=== PATIENT | male | born 1980 | race Caucasian/White ===

== ENCOUNTER 2022-12-30 18:13 | Emergency (ER) | payer BC, SELFPAY ==
[2022-12-30 18:20] VITALS: BP 132/85; PULSE 97; RESP 16; TEMP 36.8; O2SAT 100
--- NOTE | 2022-12-30 18:25 | ED.EAR ---
HPI - Ear Problem General Chief complaint: Ear Stated complaint: Left Ear Pain History of Present Illness HPI Narrative: Patient presents with left ear pain. Patient states he wears ear buds at work and thinks he may have scratched his left inner ear. No drainage from the ear no decrease in hearing. Related Data Home Medications Medication Instructions Recorded Confirmed albuterol sulfate 90 mcg/actuation 2 puff inhalation QID PRN 12/30/22 12/30/22 aerosol inhaler Shortness Of Breath Or Wheezing Allergies Allergy/AdvReac Type Severity Reaction Status Date / Time cefaclor [From [facility]] Allergy Unknown Unknown Verified 12/30/22 18:25 Review of Systems Review of Systems: CONSTITUTIONAL: Denies fever, chills, or sweats. EYES: Denies visual changes, redness, or discharge. ENT: Denies rhinorrhea, congestion, sore throat, or otalgia. CARDIOVASCULAR: Denies chest pain, palpitations, or edema. RESPIRATORY: Denies cough or dyspnea. GASTROINTESTINAL: Denies abdominal pain, nausea, vomiting, or diarrhea. GENITOURINARY: Denies dysuria or hematuria. SKIN: Denies rash or itching. MUSCULOSKELETAL: Denies back pain, joint pain, or myalgia. NEUROLOGIC: Denies headache, numbness, or weakness. PSYCHIATRIC: Denies anxiety or depression. PMFSH Comments At time of signature, agree with nursing past medical, surgical, social and family history. There is no relevant family history pertinent to the presenting complaint Exam Narrative: GENERAL: Well-appearing, well-nourished, and in no acute distress. HEAD: Normocephalic, atraumatic. EYES: PERRLA and EOMI. ENT: Nares clear, no rhinorrhea or epistaxis. Mucous membranes moist. NECK: Supple. CHEST: Clear to auscultation. No respiratory distress. HEART: Regular rate and rhythm. No murmur heard. Normal peripheral pulses. ABDOMEN: Soft, nontender, nondistended, normal active bowel sounds. EXTREMITIES: Normal range of motion. No edema. SKIN: Warm, dry, no rash. NEURO: No focal deficits. Alert and oriented x3. Mikael Coma Scale Eye Opening: Spontaneous 4 Mikael Coma Scale Motor: Obeys Commands 6 [place] Coma Scale Verbal: Oriented 5 Mikael Coma Scale Total 15 HENMT: Ears: Abnormal EAC present erythema on the left, edema and EAC tenderness Course Course Level of Care: Express Care Visit Vital Signs Vital signs: Vital Signs Temperature 36.8 C 12/30/22 18:20 Pulse Rate 97 12/30/22 18:20 Respiratory Rate 16 12/30/22 18:20 Blood Pressure 132/85 12/30/22 18:20 Pulse Oximetry 100 12/30/22 18:20 Oxygen Delivery Room Air 12/30/22 18:20 Temperature 36.8 C 12/30/22 18:20 Pulse Rate 97 12/30/22 18:20 Respiratory Rate 16 12/30/22 18:20 Blood Pressure 132/85 12/30/22 18:20 Pulse Oximetry 100 12/30/22 18:20 Oxygen Delivery Room Air 12/30/22 18:20 Please JOSE schedule a followup visit with your personal physician for further evaluation and treatment. Including recheck and discussion of your blood pressure. If your symptoms persist, change or worsen significantly before you can contact your personal physician then please, without delay, go to the emergency department for further evaluation Medical Decision Making Vital Signs Vital Signs: Vital Signs Temperature 36.8 C 12/30/22 18:20 Pulse Rate 97 12/30/22 18:20 Respiratory Rate 16 12/30/22 18:20 Blood Pressure 132/85 12/30/22 18:20 Pulse Oximetry 100 12/30/22 18:20 Oxygen Delivery Room Air 12/30/22 18:20 Temperature 36.8 C 12/30/22 18:20 Pulse Rate 97 12/30/22 18:20 Respiratory Rate 16 12/30/22 18:20 Blood Pressure 132/85 12/30/22 18:20 Pulse Oximetry 100 12/30/22 18:20 Oxygen Delivery Room Air 12/30/22 18:20 Discharge Plan Discharge Clinical Impression: Otitis externa Patient Disposition: Home, Self-Care Condition: Stable Instructions: Antibiotic Form, Earache (ED) Additional Instructions: Use ear drops as pr
[2022-12-30 18:26] VITALS: BP 132/85; PULSE 97; RESP 16; TEMP 36.8; O2SAT 100
== END 2022-12-30 18:29 | disposition home or self-care (01) ==
PROVIDERS: Emergency Provider Nurse Practitioner Family; PCP Family Medicine
DX: H60.90 Unspecified otitis externa, unspecified ear (principal)
CPT/HCPCS: 99213; G0463